=== PATIENT | female | born 1960 | race Two or more races ===

== ENCOUNTER 2018-08-23 13:36 | Emergency (ER) | payer OTHER ==
[~2018-08-23] VITALS: Ht 154.9 cm; Wt 85.7 kg
[2018-08-23 13:51] VITALS: Ht 154.9 cm; Wt 85.7 kg
[2018-08-23 15:08] VITALS: BP 150/98
== END 2018-08-23 15:08 | disposition home or self-care (01) ==
LOC: ED 13:36
DX: S01.511A Laceration without foreign body of lip, initial encounter (principal); S00.83XA Contusion of other part of head, initial encounter; K08.89 Other specified disorders of teeth and supporting structures; Z90.710 Acquired absence of both cervix and uterus; W18.09XA Striking against other object with subsequent fall, initial encounter; Y93.89 Activity, other specified; Y92.89 Other specified places as the place of occurrence of the external cause; Y99.8 Other external cause status